=== PATIENT | female | born 1950 | race Caucasian/White ===

== ENCOUNTER 2016-09-06 06:45 | Day surgery (SDC) | payer BC ==
[2016-09-06] MEDS ORDERED: LIDOCAINE HCL 1% MPF SOL ONE (06:59)
[2016-09-06] MEDS ORDERED: PROPOFOL 500 MG/50 ML EMU IV ONE (06:59)
[2016-09-06] MEDS ORDERED: KETOROLAC TROMETHAMINE 30 MG/ML SOL ONE (07:17)
[2016-09-06 09:03] VITALS: TEMP 97.4
[2016-09-06 09:12] VITALS: O2SAT 99
[2016-09-06 09:21] VITALS: PULSE 74; RESP 20
[2016-09-06 09:29] VITALS: BP 116/87
== END 2016-09-06 09:35 | disposition home or self-care (01) ==
LOC: SURG 06:45
PROVIDERS: ATTEND Internal Medicine Gastroenterology
DX: K22.70 Barrett's esophagus without dysplasia (principal); K44.9 Diaphragmatic hernia without obstruction or gangrene; Z12.11 Encounter for screening for malignant neoplasm of colon; Z86.010 Personal history of colon polyps; K57.30 Diverticulosis of large intestine without perforation or abscess without bleeding; K64.8 Other hemorrhoids; K20.9 Esophagitis, unspecified
CPT/HCPCS: 43239; 45378; 99001; J1885; J2001; J2704

== ENCOUNTER 2018-11-06 07:55 | Day surgery (SDC) | payer BC ==
[~2018-11-06 07:55] MED LIST: LIDOCAINE HCL 1% MPF 30 SOL ONE; PROPOFOL 500 MG/50 ML EMU IV ONE
[2018-11-06 09:38] VITALS: TEMP 97.6
[2018-11-06 09:57] VITALS: RESP 20; O2SAT 98
[2018-11-06 10:03] VITALS: BP 123/77; PULSE 75
== END 2018-11-06 10:38 | disposition home or self-care (01) ==
LOC: SURG 07:55
PROVIDERS: ATTEND Internal Medicine Gastroenterology
DX: R13.10 Dysphagia, unspecified (principal); K21.9 Gastro-esophageal reflux disease without esophagitis; K22.70 Barrett's esophagus without dysplasia; R11.10 Vomiting, unspecified; K44.9 Diaphragmatic hernia without obstruction or gangrene; Z98.890 Other specified postprocedural states; L53.8 Other specified erythematous conditions; K29.70 Gastritis, unspecified, without bleeding; E11.9 Type 2 diabetes mellitus without complications
CPT/HCPCS: 82962; 99001; J2001; J2704